=== PATIENT | female | born 2000 | race Caucasian/White ===

== ENCOUNTER 2022-01-11 14:49 | Inpatient (IN) | payer OTHER ==
[2022-01-11] VITALS (17 sets, daily range): BP systolic 113–139; BP diastolic 62–82; PULSE 73–113; TEMP 97.9–98.3
[~2022-01-11] VITALS: Ht 175.3 cm; Wt 201.0 kg
--- NOTE | 2022-01-11 14:25 | NUR ---
1425 PT AMBULATORY TO UNIT, REPORTS CTX, NO LEAKING OF FLUID BUT INCREASE IN DISCHARGE, POSITIVE MOVEMENT. CTX Q5-7 MINUTES. FARHANA GEORGE, IN ROOM FOR SVE /-. PT COMFORTABLE IN BED. WILL CONTINUE TO MONITOR.
[2022-01-11 15:12] LABS: BASO % 0.3 % (0.0-2.0); EOS # 0.1 K/mm3 (0.0-0.7); EOS % 0.5 % (0.0-4.0); GRAN # 6.7 K/mm3 (1.4-6.5); HEMOGLOBIN 10.8 g/dl (12.5-16.0); LYMPH # 1.7 K/mm3 (1.2-3.4); LYMPH % 17.5 % (20.0-51.0); MEAN CELL VOLUME 88 fl (80.0-100.0); MEAN CORPUSCULAR HEMOGLOBIN 30 pg (27-31); MEAN CORPUSCULAR HGB CONC 34 g/dl (33.0-37.0); MEAN PLATELET VOLUME 11.5 fl (7.4-10.4); MONO # 1.1 K/mm3 (0.1-0.6); MONO % 11.8 % (1.7-9.3); PLATELET COUNT 204 K/mm3 (130-400); RED BLOOD COUNT 3.64 M/mm3 (4.10-5.30); REDCELL DISTRIBUTION WIDTH-CV 13.9 % (11.5-14.5)
[2022-01-11 15:15] LABS: HEMATOCRIT 31.9 % (37.0-47.0)
[2022-01-12 01:05] VITALS: BP 123/72; PULSE 79; TEMP 98.3
[2022-01-12 08:09] VITALS: BP 112/53; PULSE 84; TEMP 97.9
[2022-01-12] MEDS ORDERED: NORCO 325 MG-51 TAB PO (08:29)
[2022-01-12] MEDS ORDERED: MOTRIN 800800 MG/TAB PO (08:29)
--- NOTE | 2022-01-12 09:45 | NUR ---
Initial visit; Partnts thanked [employer] for offering congratulations and God's blessings for the of their son. Pe[employer] Vendor thanked family for choosing [facility] to which parents stated it has been a good experience.
[2022-01-12 12:26] VITALS: BP 98/67; PULSE 110; PULSE 99; TEMP 97.7
[2022-01-12 16:15] VITALS: BP 121/67; PULSE 100; TEMP 97.3
[2022-01-12 20:45] VITALS: BP 113/67; PULSE 101; TEMP 98.1
[2022-01-13 07:51] VITALS: BP 103/63; PULSE 86; TEMP 98.2
== END 2022-01-13 10:00 | disposition home or self-care (01) | DRG 788 ==
LOC: LDRO 14:49 → OB 14:57 → LDR 14:57 → OB 17:47
PROVIDERS: ADMIT Obstetrics & Gynecology
PROC: 10D00Z1 Extraction of Products of Conception, Low, Open Approach (ICD-10-PCS; principal; 2022-01-11)
DX: O32.1XX0 Maternal care for breech presentation, not applicable or unspecified (principal); O99.02 Anemia complicating childbirth; D64.9 Anemia, unspecified; Z3A.39 39 weeks gestation of pregnancy; Z37.0 Single live birth
CPT/HCPCS: J0690; J1100; J2405; J2590; J2765; J7120